=== PATIENT | female | born 1985 | race Caucasian/White ===

== ENCOUNTER 2023-08-24 09:54 | Outpatient (CLI) | payer OTHER, SELFPAY ==
[2023-08-24 11:04] LABS: Anion Gap 7 mmol/L (8-16); Blood Urea Nitrogen 11 mg/dL (7-17); Calcium 9.4 mg/dL (8.4-10.2); Carbon Dioxide 24 mmol/L (22-30); Chloride 105 mmol/L (98-107); Estimated Glomerular Filt Rate > 60; Glucose 93 mg/dL (65-110); Potassium 3.7 mmol/L (3.4-5.0); Sodium 136 mmol/L (137-145)
[2023-08-24 12:04] LABS: Vitamin D 25 Hydroxy 16.2 ng/mL
[2023-08-30 12:08] LABS: Anti Nuclear Antibody Titer 1:40 (Negative)
== END 2023-08-24 09:55 | disposition home or self-care (01) ==
DX: R55 Syncope and collapse (principal); R63.4 Abnormal weight loss; Z01.89 Encounter for other specified special examinations
CPT/HCPCS: 36415; 80048; 82306; 82607; 84443; 86038; 86039; 99212; G0463

== ENCOUNTER 2025-08-25 17:15 | Emergency (ER) | payer OTHER, SELFPAY ==
--- OUTSIDE RECORDS SUMMARY | 2025-08-25 17:18 | XMS_ITS | Clinical Summary ---
Author Organization [facility] Address [address] [place] [address] Care Team Providers Care Licensing Representative Name Role Phone Roshni Maurer MD Primary Care Provider [phone] Allergies Active Allergy Reactions Criticality Noted Date Comments Bismuth Subsalicylate Hives High 10/19/2021 Iodine Hives Medium Latex Rash Medium Latex in bandages-skin rash like chemical burn Morphine Swelling,Urticaria High 07/09/2016 Throat swellling Opioids - Morphine Analogues Penicillins Hives Medium As child Sulfamethoxazole-Trimeth oprim Urticaria Medium 11/26/2017 Medications ibuprofen 200 mg tab/cap Take 1 tablet/capsule (200 mg total) by mouth every 6 (six) hours as needed for pain Active pantoprazole DR (PROTONIX) 40 mg EC tabletIndications: Treatment of Non-Bleeding Gastric Disorder Take 1 tablet (40 mg total) by mouth daily Active ondansetron ODT (ZOFRAN-ODT) 4 mg disintegrating tabletIndications: Severe Nausea Take 1 tablet (4 mg total) by mouth every 12 (twelve) hours as needed for nausea or vomiting Active albuterol HFA (PROVENTIL HFA,VENTOLIN HFA,PROAIR HFA) 90 mcg/actuation inhaler Inhale 2 puffs every 6 (six) hours as needed for wheezing or shortness of breath Active polyethylene glycol (MIRALAX) 17 gram/dose bulk powderIndications: constipation Take 17 g by mouth 2 (two) times a day 1020 g 2 09/15/19 24 Active Additional Information Patient not taking.Reported on 09/21/2023 budesonide-formote roL (SYMBICORT) 80-4.5 mcg/actuation inhaler Inhale 2 puffs 2 (two) times a day 08/09/20 23 Active ergocalciferol (VITAMIN D) 50,000 unit capsule Take 1 capsule (50,000 Units total) by mouth once a week 09/01/19 24 Active linaCLOtide (LINZESS) 72 mcg capsuleIndications :Other constipation,Abdom inal pain Take 1 capsule (72 mcg total) by mouth daily 30 capsule 10/26/19 24 Active mirtazapine (REMERON) 15 mg tabletIndications: Abdominal pain,Functional GI symptoms Take 1 tablet (15 mg total) by mouth nightly 30 tablet 02/01/20 24 Active Active Problems Problem Noted Date Diagnosed Date Chronic idiopathic constipation 09/21/2023 Abdominal pain 04/24/2023 Other constipation 04/24/2023 Discoloration of skin of toe 04/05/2018 Always thirsty 04/05/2018 Abnormal menstruation 04/05/2018 BOWLING (headache) 04/05/2018 Rash and nonspecific skin eruption 04/05/2018 Pain in extremity 11/03/2011 Surgical History Surgery Date Site/Laterality Comments ESOPHAGOGASTRODUODENOSCOPY CENTRAL LINE PLACEMENT > 5 YEARS 07/25/2023 N/A Medical History Medical History Date Comments Asthma Haven't used in [facility] since elementary school 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, 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 Poor intravenous access Family History Medical History Relation Name Comments Hypertension Father Heart disease Maternal Grandfather Hypertension Maternal Grandfather Kidney failure Maternal Grandmother Hypertension Mother Skin cancer Mother Celiac disease Neg Hx Colon cancer Neg Hx Diabetes type I Neg Hx Inflammatory bowel disease Neg Hx Stomach cancer Neg Hx Thyroid disease Neg Hx Relation Name Status Comments Father Alive Maternal Grandfather Maternal Grandmother Mother Alive Social History Tobacco Use Types Packs/Day Years Used Date Smoking Tobacco: Never Smokeless Tobacco: Never Tobacco Cessation:Counseling Given: Not Answered Alcohol Use Standard Drinks/Week Comments Not Currently 0 (1 standard drink = 0.6 oz pur e alcohol) AUDIT-C Answer Date Recorded Frequency of Alcohol Consumption Not on file 07/25/2023 Q2: How many drinks containi ng alcohol do you have on a typical day when you are drinking? Patient does not drink Frequency of Binge Drinking Not on file 06/29 Personal Safety Answer Date Recorded Have you ever been in or are you currently in a harmful physical or emotional relationship or is someone making you feel afraid or unsafe? Denies 07/25/2023 Comments No Sex and Gender Information Value Date Recorded Sex Assigned at Not on file Legal Sex Female 3:58 AM PLASTERER FOREMAN Gender Identity Not on file Sexual Orientation Not on file Last Filed Vital Signs Vital Sign Reading Time Taken Comments Blood Pressure 130/86 09/21/2023 11:02 AM PLASTERER FOREMAN Pulse 88 09/21/2023 11:02 AM PLASTERER FOREMAN Temperature 36.9 C (98.4 F) 09/21/2023 11:02 AM PLASTERER FOREMAN Respiratory Rate 18 09/21/2023 11:02 AM PLASTERER FOREMAN Oxygen Saturation 100% 09/21/2023 11:02 AM PLASTERER FOREMAN Inhaled Oxygen Concentration - - Weight 75.3 kg (166 lb) 09/21/2023 11:02 AM PLASTERER FOREMAN Height 157.5 cm (5' 2) 09/21/2023 11:02 AM PLASTERER FOREMAN Body Mass Index 30.36 09/21/2023 11:02 AM PLASTERER FOREMAN Plan of Treatment Health Maintenance Due Date Last Done Comments Cervical Cancer Screening 1987 Depression Screening 1987 Hepatitis C Screening 1987 Varicella Vaccines (1 of 2 - 13+ 2-dose series) 02/13/2000 Regular Well Visit/Exam 18-64 2005 DTaP/Tdap/Td Vaccine (3 - Tdap) 05/14/2012 05/14/2002, 05/14/2002 HPV Vaccines (1 - 3-dose SCD M series) 2014 Covid-19 Vaccine (2 - 2024-2 6 season) 2025 09/10/2021 Influenza Vaccine (#1) 2025 Hepatitis B Screening Completed 05/14/2002 Pneumococcal vaccine <65 Aged Out No longer eligible based on patient's age to complete this topic Insurance [facility] [employer] [place] [address] [employer] TRADITIONAL Advance Directives For more information, please contact: [phone] * Full Code (Latest Code Status on File) Date Activated Date Inactivated Comments 07/25/2023 12:26 PM 07/25/2023 7:49 PM Care Teams Licensing Representative Relationship Specialty Start Date End Date Roshni Maurer MD [address] [place] [address] PCP - General Internal Medicine 07/14/23
--- OUTSIDE RECORDS SUMMARY | 2025-08-25 17:18 | XMS_ITS | Clinical Summary ---
Author Organization [facility] Address [address] [place] [id number] Care Team Providers Care Machine Bunch Maker Name Role Phone Hollie Rodriguez MD Primary Care Provider + Allergies Active Allergy Reactions Criticality Noted Date Comments Dexamethasone Unknown 05/28/2024 Iodine Unknown 09/18/2019 Latex Hives 09/18/2019 Morphine Anaphylaxis High 09/18/2019 Penicillins Hives 09/18/2019 Prednisone Palpitations Low 05/28/2024 Chest pain, heat racing and palpitations Sulfamethoxazole-Trimetho prim Hives High 11/26/2017 Medications omeprazole (PRILOSEC) 20 MG capsuleIndicati ons:Anxiety Take 1 capsule (20 mg total) by mouth daily. 30 capsule 05/06/2025 Active mirtazapine (REMERON) 7.5 MG Tab tabletIndicatio ns:Anxiety Take 1 tablet (7.5 mg total) by mouth nightly. 90 tablet 3 05/06/2025 Active Active Problems Problem Noted Date Diagnosed Date Congenital deformity of left upper extremity 08/2023 Congenital deformity of right upper extremity Chronic idiopathic constipation 09/21/2023 Overview (05/28/2024): Had colonoscopy and MRI. Tried linzess and had bad side effects. Mirtazapine has been helping. Menstrual cycle seems to help symptoms. Today she had 3 eggs and butternut squash along with a salad kit and some rotisserie chicken. She is worried about protein intake. Assessment & Plan (05/28/2024 2:03 PM CDT): Discussed that fiber plays a large role in bowel habits. Encouraged her to slowly advance fiber with a goal of reaching 30 g daily. She would prefer to avoid additional testing but could consider gastric emptying study in the future if symptoms do not improve. Also discussed MiraLAX as a safe option. Anxiety 03/15/2018 Overview (05/28/2024): Patient has been taking mirtazapine not only for anxiety but to improve appetite and it has caused some looser stools which has managed her constipation little better as well. Assessment & Plan (05/28/2024 2:03 PM CDT): Controlled. Continue mirtazapine. Recurrent major depressive disorder, in remiss n 07/18/2016 Overview (05/06/2025): - The patient is currently on mirtazapine 15 mg and wishes to reduce the dosage to 7.5 mg, with the goal of discontinuation. - She takes it at 9:30 PM, which induces extreme hunger and late-night eating. Assessment & Plan (05/06/2025 11:56 AM CDT): Increased hunger due to mirtazapine. - Reduce mirtazapine dosage from 15 mg to 7.5 mg. - Prescription for mirtazapine 7.5 mg provided. Immunizations Immunization Administration Dates Next Due [id number] (Pediarix) 05/14/2002 Dt (1-<7 Y.O.) 05/14/2002 PFIZER COVID-19 (COWAN CAP), MRNA, LNP-S, PF, 30 MCG/0.3 ML WAQAS-SUCROSE, IM 12/15/2021 PFIZER COVID-19 (ORIGINAL FO RMULATION, PURPLE CAP) mRNA, LNP-S, PF, 30 MCG/0.3 ML DOSE 09/10/2021 Tdap (Adacel) 07/01/2024 Family History Medical History Relation Comments Hypertension Father Cancer Mother skin cancer Hypertension Mother Sleep Apnea Mother Relation Status Comments Father Alive Mother Alive Social History Tobacco Use Types Packs/Day Years Used Date Smoking Tobacco: Never Passive Smoke Exposure: Past Smokeless Tobacco: Never Tobacco Cessation:Counseling Given: No Alcohol Use Standard Drinks/Week Comments No 0 (1 standard drink = 0.6 oz pur e alcohol) AUDIT-C Answer Date Recorded Frequency of Alcohol Consumption Never 09/18/2019 Average Number of Drinks Not on file 020 Frequency of Binge Drinking Not on file 08/29 PHQ-2 Answer Date Recorded Patient Health Questionnaire-2 Score 0 10/07/2024 Comments No Sex and Gender Information Value Date Recorded Sex Assigned at Female 03/11/2025 3:34 PM CDT Legal Sex Female 11:49 AM UTILIZATION SUPERVISOR Gender Identity Female 05/06/2025 9:14 AM CDT Sexual Orientation Not on file Last Filed Vital Signs Vital Sign Reading Time Taken Comments Blood Pressure 122/84 05/06/2025 9:16 AM CDT Pulse 91 05/06/2025 9:16 AM CDT Temperature 36.7 C (98.1 F) 05/06/2025 9:16 AM CDT Respiratory Rate 16 05/06/2025 9:16 AM CDT Oxygen Saturation 97% 05/06/2025 9:16 AM CDT Inhaled Oxygen Concentration - - Weight 97.5 kg (215 lb) 05/06/2025 9:16 AM CDT Height 160 cm (5' 3) 05/06/2025 9:16 AM CDT Body Mass Index 38.09 05/06/2025 9:16 AM CDT Plan of Treatment Health Maintenance Due Date Last Done Comments Cervical Cancer Screening Pa p Smear (Age 30 to 64) Every 3 Years 1987 Hepatitis B Vaccines (2 of 3 - 3-dose series) 06/11/2002 05/14/2002 Hepatitis C 2005 HPV Vaccines (1 - 3-dose SCD M series) 2014 Cervical Cancer Screening Pa p with HPV Testing (Age 30 to 64) Every 5 Years 2017 Cervical Cancer Screening wi th HPV 2017 COVID-19 Vaccine (3 - 2024-2 6 season) 2025 12/15/2021, 09/10/2021 Annual Physical 05/28/2025 05/28/2024 Influenza Adult (#1) 2025 DTaP, Tdap and Td Vaccines ( 3 - Td or Tdap) 07/01/2034 07/01/2024, 05/14/2002, 05/14/2002 PHQ-2 (Physician [place]) Completed 10/07/2024 Hepatitis A Vaccines Aged Out No long er eligible based on patient's age to complete this topic Meningococcal B Vaccine Aged Out No l onger eligible based on patient's age to complete this topic Meningococcal Vaccine Aged Out No molly xochilt eligible based on patient's age to complete this topic Pneumococcal Vaccine: Pediatrics (0 to 5 Years) and At-Risk Patients (6 to 49 Years) Aged Out No longer eligible b ased on patient's age to complete this topic RSV Immunizations Under 20 Months Aged Out No longer eligible b ased on patient's age to complete this topic Insurance [employer] Care Teams Machine Bunch Maker Relationship Specialty Start Date End Date Hollie Rodriguez MD [address] [place] [id number] PCP - General FAMILY PRACTICE 05/28/24
--- OUTSIDE RECORDS SUMMARY | 2025-08-25 17:18 | XMS_ITS | Clinical Summary ---
Author Organization [facility] Address [facility] [address] Care Team Providers Care Product Support Technician Name Role Phone Marisol Navarro DO Primary Care Provider [phone] Source Comments [facility],non-owned Affiliates and Associated Physician Practices is amultiple site organization consisting of ambulatory clinics and hospital sitesin [place], [place], [place] and [place]. This disclosure is being madepursuant to the Care Everywhere program and may not contain all information available regarding this patient. Last updated 18.[facility] Allergies Active Allergy Reactions Criticality Noted Date Comments Sulfamethoxazole W-Trimethoprim Urticaria Medium 04/0 08/2017 Povidone Iodine Rash Medium 05/16/2018 Latex Rash Medium 07/09/2016 Morphine Urticaria Medium 07/09/2016 Throat swellling Penicillins Swelling 07/09/2016 Throat swelling Medications * Be aware that medications may not be up to date on this document. Alwaysverify current medications with the patient. doxycycline hyclate (VIBRAMYCIN) 50 MG capsule Take 50 mg by mouth once daily 11 05/04/2018 Active Active Problems No known active problems Family History Medical History Relation Name Comments Asthma Neg Hx CVA Neg Hx Cancer - Breast Neg Hx Cancer - Other Neg Hx Cancer - Skin, Melanoma Neg Hx Cancer - Skin, Non Melanoma Neg Hx Eczema Neg Hx Hemophilia Neg Hx Psoriasis Neg Hx Social History Tobacco Use Types Packs/Day Years Used Date Smoking Tobacco: Never Smokeless Tobacco: Never Alcohol Use Standard Drinks/Week Comments No 0 (1 standard drink = 0.6 oz pur e alcohol) Comments Unknown Sex and Gender Information Value Date Recorded Sex Assigned at Not on file Legal Sex Female 5:33 AM CLIENT SERVICES REPRESENTATIVE Gender Identity Not on file Sexual Orientation Not on file Last Filed Vital Signs Vital Sign Reading Time Taken Comments Blood Pressure 118/86 11/26/2017 4:02 PM CDT Pulse 81 11/26/2017 4:02 PM CDT Temperature 36.8 C (98.3 F) 11/26/2017 4:02 PM CDT Respiratory Rate 18 11/26/2017 4:02 PM CDT Oxygen Saturation 98% 11/26/2017 4:02 PM CDT Inhaled Oxygen Concentration - - Weight 68 kg (150 lb) 11/26/2017 4:02 PM CDT Height 157.5 cm (5' 2) 11/26/2017 4:02 PM CDT Body Mass Index 27.44 11/26/2017 4:02 PM CDT Plan of Treatment Health Maintenance Due Date Last Done Comments HIV SCREENING 2002 HEPATITIS C SCREENING 02/07/2005 DTAP/TDAP/TD VACCINES (1 - Tdap) 2006 HEPATITIS B VACCINE (1 of 3 - 19+ 3-dose series) 2006 HPV VACCINE (1 - 3-dose SCDM series) 2014 DEPRESSION SCREENING 08/28/2024 COVID-19 VACCINE (1 - 2024-2 6 season) 2025 INFLUENZA VACCINE (#1) 2025 ZOSTER VACCINE (1 of 2) 2037 HIB VACCINE Aged Out No longer eligi ble based on patient's age to complete this topic MENINGOCOCCAL (Group B) VACC INE SHARED DECISION-MAKING Aged Out No longer eligibl e based on patient's age to complete this topic MENINGOCOCCAL GROUPS A/C/Y/W VACCINE Aged Out No longer eligible b ased on patient's age to complete this topic PNEUMOCOCCAL VACCINE Aged Out No long er eligible based on patient's age to complete this topic Insurance [employer] Care Teams Product Support Technician Relationship Specialty Start Date End Date Marisol Navarro DO [facility] - General 05/16/18
--- OUTSIDE RECORDS SUMMARY | 2025-08-25 17:18 | XMS_ITS | Clinical Summary ---
Author Organization [facility] Address [address] [place] [address] Phone Care Team Providers Care Culinary Arts Instructor Name Role Phone Roshni Maurer MD Primary Care Provider [phone] Allergies Active Allergy Reactions Criticality Noted Date Comments Bismuth Subsalicylate Hives High 10/19/2021 Iodine Rash Low 07/18/2016 Latex Other (See Comments) 07/18/2016 Burn type reaction on skin Morphine Swelling Low 07/18/2016 Penicillins Unknown 07/18/2016 Sulfamethoxazole-Trimeth oprim Hives High 11/26/2017 Medications EPINEPHrine (EPIPEN) 0.3 mg/0.3 mL Auto-InjectorInd ications:Allergi c reaction to COVID-19 vaccine Inject 0.3 mL (0.3 mg) by intramuscular injection 1 time daily as needed for Anaphylaxis. 1 Each 10/19/19 22 Active fluticasone propionate (FLONASE) 50 mcg/spray [place], Suspension nasal inhalerIndicatio ns:Moderate persistent asthma with acute exacerbation Administer 2 Sprays in each nostril daily. 16 Gram 05/31/20 22 Active loratadine 10 mg CapsuleIndicatio ns:Allergy, sequela Take 10 mg by mouth daily. 30 Capsule 3 05/31/20 22 Active ibuprofen (MOTRIN) 200 mg tablet Take 200 mg by mouth. Active polyethylene glycol 3350 (MIRALAX) 17 gram/dose Powder Take 17 Grams by mouth daily. 04/24/20 23 Active ergocalciferol (VITAMIN D2) 50,000 unit capsuleIndicatio ns:Vitamin D deficiency Take 1 Capsule (50,000 Units) by mouth every 7 days. 12 Capsule 09/01/19 24 Active fluticasone propion-salmeter oL (ADVAIR DISKUS,WIXELA INHUB) 100-50 mcg/dose disk inhaler Take 1 Puff by inhalation 2 times daily. 1 Each 11/17/19 24 Active Active Problems Problem Noted Date Diagnosed Date Paresthesias 08/09/2023 Abdominal pain 04/24/2023 Migraine without aura and wi thout status migrainosus, not intractable 04/09/2019 Anxiety 03/15/2018 Recurrent major depressive disorder, in remissio n 07/18/2016 Resolved Problems Problem Noted Date Diagnosed Date Resolved Date Alopecia 08/22/2023 08/22/2023 Weight loss 08/09/2023 08/09/2023 Pain in right knee 08/09/2023 Pain in left knee 08/09/2023 08/09/2023 Foot pain, left 08/09/2023 08/09/2023 Epistaxis 08/09/2023 08/09/2023 Other constipation 04/24/2023 Rash and nonspecific skin eruption 04/05/2018 08/09/2023 BOWLING (headache) 04/05/2018 08/09/2023 Discoloration of skin 04/05/20182022 Always thirsty 04/05/2018 08/09/2023 Protein-calorie malnutrition, mild 03/15/2018 10/19/2021 Pain in extremity 11/03/2011 08/09/2023 Immunizations Immunization Administration Dates Next Due (DIPHTHERIA AND TETANUS TOXO IDS ADSORBED)(6 WKS-6 YRS) DIPTHERHIS AND TETANUS TOXOIDS VACCINE, 0.5 ML IM 05/14/2002 (PEDIARIX)(6 WKS-6 YRS) DIPT HERIA, TETANUS TOXOIDS, ACELLULAR PERTUSSIS, HEPATITIS B, AND INACTIVATED POLIOVIRUS VACCINE ([id number]), 0.5ML, IM 05/14/2002 (PFIZER)(12 YR UP) COVID-19 VACCINE - EMERGENCY USE AUTHORIZATION, MRNA, [id number](PF) 30 MCG/0.3 ML IM SUSP 09/10/2021 Family History Medical History Relation Name Comments Cancer Maternal Grandfather prostat e Hypertension Maternal Grandmother Hypertension Mother Skin Cancer Mother Relation Name Status Comments Maternal Grandfather Maternal Grandmother Mother Social History Tobacco Use Types Packs/Day Years Used Date Smoking Tobacco: Never Smokeless Tobacco: Never Alcohol Use Standard Drinks/Week Comments No 0 (1 standard drink = 0.6 oz pur e alcohol) Comments No Sex and Gender Information Value Date Recorded Sex Assigned at Not on file Legal Sex Female 2:45 PM CDT Gender Identity Not on file Sexual Orientation Not on file Last Filed Vital Signs Vital Sign Reading Time Taken Comments Blood Pressure 118/64 08/22/2023 3:31 PM INSURANCE CLAIMS CLERK Pulse 72 04/09/2019 12:58 PM CDT Temperature 36.5 C (97.7 F) 08/22/2023 3:31 PM INSURANCE CLAIMS CLERK Respiratory Rate 16 08/22/2023 3:31 PM INSURANCE CLAIMS CLERK Oxygen Saturation 97% 02/14/2018 1:44 PM CDT Inhaled Oxygen Concentration - - Weight 80.7 kg (178 lb) 08/22/2023 3:31 PM INSURANCE CLAIMS CLERK Height 157.5 cm (5' 2) 08/22/2023 3:31 PM INSURANCE CLAIMS CLERK Body Mass Index 32.56 08/22/2023 3:31 PM INSURANCE CLAIMS CLERK Plan of Treatment Health Maintenance Due Date Last Done Comments HEPATITIS B VACCINES (2 of 3 - 3-dose series) 06/11/2002 05/14/2002 HPV/Cotest (21-29) 02/13/2008 DTAP/TDAP/TD VACCINES (2 - Tdap) 05/14/2012 05/14/20 02, 05/14/2002 HPV/Cotest (30-65) 2017 CERVICAL CANCER SCREENING 08/29/2018 PAP SMEAR 08/29/2018 08/29/2015 Preventative Visit- Commercial 08/28/2024 0 10/19/2021, 01/08/2018, 07/18/2016 INFLUENZA VACCINE (#1) 2025 COVID-19 Vaccine (2 - 2024- season) 2025 HPV VACCINES (No Doses Required) Completed Insurance [facility] [employer] Care Teams Culinary Arts Instructor Relationship Specialty Start Date End Date Roshni Maurer MD [address] [place] [address] PCP - General Internal Medicine 10/19/21
--- OUTSIDE RECORDS SUMMARY | 2025-08-25 17:18 | XMS_ITS | Patient Health Record ---
Author Organization [facility] Address [address] [facility] [address] [place], [place] [address] Phone [phone] Care Team Providers Care Compliance Examiner Name Role Phone RAOUL MARQUEZ Primary Care Provider Unavail able Gabriel Orr Unavailable Allergies Allergen (clinical drug ingredient) Drug/Non Drug Allergy documented on EMR Reaction Allergy Type Onset Date Status dexamethasone Unknown Drug Allergy Act john Latex latex (uncoded) Unknown Allergy Acti ve prednisone prednisone Unknown Drug Allergy Activ e sulfacedmide (uncoded) Unknown Allergy Active morphine morphine Unknown Drug Allergy Active PCN (uncoded) Unknown Allergy Active Reason For Referral No Information Medications Medication SIG (Take, Route, Frequency, Duration) Notes Start Date End Date Diagnosis ( ICD Code) Status Doxycycline as directed Active Social History Tobacco Use: Social History Observation Description Date Details (start date - stop date) Never Smoker NA - NA Sex Observation Social History Observation Description Sex Observation Female Social History Social History Social Info Question Answer Notes Tobacco Use: Smoking Status nonsmoker Additional Details Category Social Info Options Details Social History Alcohol: none Cigarette Smoking: no Drug abuse: no Regular Exercise: yes With whom do you live? parents Marital Status single Living accomodations: house Problems Problem Type SNOMED Code ICD Code Dates Problem Status W/U Status Risk Notes Problem Pain of right knee region (finding) (387153447708159) Pain in right knee (M25.561) Added On:07/11 Active confirmed Problem Alopecia (09740461) Alopecia (L65.9) Added On:05/10 Active confirmed Problem Weight loss (603183914) Weight loss (R63.4) Added On:05/10 Active confirmed Problem Pain in limb (64673334) Foot pain, left (M79.672) Added On:05/10 Active confirmed Problem Pain of left knee joint (finding) (178988896125947) Pain in left knee (M25.562) Added On:07/11 Active confirmed Problem Epistaxis (381115171) Epistaxis (R04.0) Added On:07/11 Active confirmed Problem Discoloration of skin (8004215) Discoloration of skin (L81.9) Added On:05/10 Active confirmed Problem Paresthesia (finding) (62006615) Paresthesias (R20.2) Added On:07/11 Active confirmed Plan Of Treatment Pending Test Test Name Order Date Lab slip given 05/10/2018 HEPATITIS B SURFACE ANTIGEN 05/10/2018 CARDIOLIPIN IGG/IGM 05/10/2018 COMPREHENSIVE METABOLIC PANEL 05/10/2018 CBC WITH DIFFERENTIAL 05/10/2018 BETA 2 GLYCOPROTEIN I ANTIBODIES 018 CRYOGLOBULIN/CRYOFIBRINOGEN 05/10/2018 COPPER LEVEL 05/10/2018 CYCLIC CITRULLINATED PEPTIDE AB IGG 04/28 HEPATITIS C ANTIBODY 05/10/2018 C-REACTIVE PROTEIN 05/10/2018 COMPLEMENT TOTAL 05/10/2018 SJOGREN'S ANTIBODIES 05/10/2018 ANGIOTENSIN CONVERTING ENZYME 05/10/2018 RHEUMATOID FACTOR 05/10/2018 HEPATITIS B CORE AB TOTAL 05/10/2018 SEDIMENTATION RATE 05/10/2018 LUPUS ANTICOAGULANT W/REFLEX CONFIRMATIO N 05/10/2018 COMPLEMENT C3/C4 PANEL 05/10/2018 MYELOPEROXIDASE IGG 05/10/2018 PROTEINASE 3 ANTIBODY 05/10/2018 Insurance Providers Payer Name Payer Address Payer Phone Subscriber Number Group Number Insured Name Patient Relationship to Insured Coverage Start Date Coverage End Date CIGNA PPO [address] [place] [phone] [id number] MASTER APARICIO Child - Insured does not have Financial Responsibility (includes legally adopted child) 2 Medical (General) History Medical History History ICD Code bruises easily ear ache Nose Bleeds hoarseness swollen glands sores that won't heal Ringing in ears difficulty swallowing chest pain irregular heart beat swelling of ankles/feet blood in urine rapid heartbeat Hospitalization History Reason Date(Month/Year) injured arm 1987 hairline break in arm-twice 1996
[2025-08-25 17:25] VITALS: BP 142/92; PULSE 96; RESP 22; TEMP 36.6; O2SAT 100
--- NOTE | 2025-08-25 18:35 | PC.NURSE ---
Pt states that she is going to call her primary care doctor tomorrow and does not want to wait any longer to be seen.
--- OUTSIDE RECORDS SUMMARY | 2025-08-25 18:53 | XMS_ITS | Clinical Summary ---
Author Organization [facility] Harry Pino Address [address] [facility] [address] [place] [address] Phone Care Team Providers Care Business Project Analyst Name Role Phone Roshni Maurer MD Primary Care Provider [phone] Allergies Active Allergy Reactions Criticality Noted Date [...] 22 Active fluticasone propionate (FLONASE) 50 mcg/spray [place], Suspension nasal inhalerIndicatio ns:Moderate persistent asthma with [...] PERTUSSIS, HEPATITIS B, AND INACTIVATED POLIOVIRUS VACCINE ([id number]), 0.5ML, IM 05/14/2002 (PFIZER)(12 YR UP) COVID-19 VACCINE - EMERGENCY USE AUTHORIZATION, MRNA, [id number](PF) 30 MCG/0.3 ML IM SUSP 09/10/2021 Family [...] Comments Blood Pressure 118/64 08/22/2023 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 [employer] Pulse 72 04/09/2019 12:58 PM CDT Temperature 36.5 C (97.7 F) 08/22/2023 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 [employer] Respiratory Rate 16 08/22/2023 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 [employer] Oxygen Saturation 97% 02/14/2018 1:44 PM CDT Inhaled Oxygen Concentration - - Weight 80.7 kg (178 lb) 08/22/2023 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 [employer] Height 157.5 cm (5' 2) 08/22/2023 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 [employer] Body Mass Index 32.56 08/22/2023 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 [employer] Plan of Treatment Health Maintenance Due Date [...] HPV VACCINES (No Doses Required) Completed Insurance [facility] [employer] OAP Care Teams Business Project Analyst Relationship Specialty Start Date End Date Roshni Maurer MD [address] [place] [address] PCP - General Internal Medicine 10/19/21
--- OUTSIDE RECORDS SUMMARY | 2025-08-25 18:53 | XMS_ITS | Clinical Summary ---
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 Gender Identity Not on file Sexual Orientation Not on file Last Filed Vital Signs Vital Sign Reading Time Taken Comments Blood Pressure 130/86 09/21/2023 11:02 AM BUSINESS INSIGHT AND ANALYTICS MANAGER Pulse 88 09/21/2023 11:02 AM BUSINESS INSIGHT AND ANALYTICS MANAGER Temperature 36.9 C (98.4 F) 09/21/2023 11:02 AM BUSINESS INSIGHT AND ANALYTICS MANAGER Respiratory Rate 18 09/21/2023 11:02 AM BUSINESS INSIGHT AND ANALYTICS MANAGER Oxygen Saturation 100% 09/21/2023 11:02 AM BUSINESS INSIGHT AND ANALYTICS MANAGER Inhaled Oxygen Concentration - - Weight 75.3 kg (166 lb) 09/21/2023 11:02 AM BUSINESS INSIGHT AND ANALYTICS MANAGER Height 157.5 cm (5' 2) 09/21/2023 11:02 AM BUSINESS INSIGHT AND ANALYTICS MANAGER Body Mass Index 30.36 09/21/2023 11:02 AM BUSINESS INSIGHT AND ANALYTICS MANAGER Plan of Treatment Health Maintenance Due Date [...] patient's age to complete this topic Insurance [facility] BENEFIT PLAN [facility] [employer] [address] [employer] Advance Directives For more information, please contact: [phone] * Full Code (Latest Code Status on File) Date Activated Date Inactivated Comments 07/25/2023 12:26 PM 07/25/2023 7:49 PM Care Teams Project Lead Relationship Specialty Start Date End Date Roshni Maurer MD [address] [place] [address] PCP - General Internal Medicine 07/14/23
--- OUTSIDE RECORDS SUMMARY | 2025-08-25 18:53 | XMS_ITS | Clinical Summary ---
Author Organization [facility] Address [facility] [facility] [place] [address] Care Team Providers Care Agriculture Scientist Name Role Phone Marisol Navarro DO Primary Care Provider [phone] Source Comments [facility],non-owned Affiliates and Associated Physician Practices is amultiple site organization consisting of ambulatory clinics and hospital sitesin [place], [place], [place] and [place]. This disclosure is being madepursuant to the Care Everywhere program and may not contain all information available regarding this patient. 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 - General 05/16/18
--- OUTSIDE RECORDS SUMMARY | 2025-08-25 18:53 | XMS_ITS | Clinical Summary ---
Author Organization [facility] Address [address] [place] [address] Care Team Providers Care Illuminator Name Role Phone Hollie Rodriguez MD Primary [...] provided. 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
== END 2025-08-25 18:35 | disposition left against medical advice (07) ==
DX: F41.9 Anxiety disorder, unspecified (principal)
CPT/HCPCS: 99199